=== PATIENT | female | born 1980 | race Caucasian/White ===

== ENCOUNTER 2019-04-08 09:43 | Emergency (ER) | payer OTHER, SELFPAY ==
[2019-04-08 10:20] VITALS: BP 124/66; PULSE 100; RESP 14; TEMP 36.8; O2SAT 100
[2019-04-08] MEDS: TET,DIPH,PERTUSS(ACELL),VAC/PF 0.5 ML SYRINGE IM (10:39)
--- NOTE | 2019-04-08 10:47 | PC.NURSE ---
pt states, washing glass, broke, obtained laceration 4-5th web lac, occured 2 days ago. no bleeding at this time, full rom, distal cms intact.
--- NOTE | 2019-04-08 14:46 | ED_ITS ---
HPI - Wound/Laceration General Chief Complaint: Wound/Laceration Stated Complaint: Deep cut on rt hand Time Seen by Provider: 04/08/19 09:45 Source: patient Mode of arrival: Ambulatory Limitations: no limitations History of Present Illness HPI narrative: 39-year-old female nonsmoker with noncontributory medical history complains of the chief complaint a poorly healing laceration in the webspace between 4th and 5th fingers on her right hand that she suffered a few days ago. She cleaned it well and used hydrogen peroxide but states she was not seen by . She has had Band-Aids and other various dressings on it and states that it is now foul-smelling drainage. She denies any pain or redness in her hand, she has no systemic findings such as fever, chills nor nausea or vomiting. She is able to make a fist without difficulty. Onset (ago): day(s) Extremity Location: Right: hand Patient tetanus UTD: No Context: accidental Treatments prior to arrival: bandage Related Data Previous Rx's Medication Instructions Recorded doxycycline hyclate 100 mg PO BID #20 tab 04/08/19 Allergies Allergy/AdvReac Type Severity Reaction Status Date / Time Penicillins Allergy Verified 04/08/19 10:37 Review of Systems Constitutional Constitutional: Denies chills, Denies fatigue, Denies fever(s), Denies frequent falls, Denies lethargy and Denies weakness Eyes Eyes: Denies change in vision, Denies eye discharge, Denies irritation and Denies loss of vision ENT Ears, Nose, Mouth, and Throat: Denies change in voice, Denies dizziness, Denies neck pain, Denies sore throat and Denies throat swelling Cardiovascular Cardiovascular: Denies chest pain, Denies irregular heart rhythm, Denies lightheadedness, Denies palpitations, Denies dyspnea, Denies dyspnea on exertion and Denies orthopnea Respiratory Respiratory: Denies cough, Denies dyspnea, Denies dyspnea on exertion and Denies wheezing Gastrointestinal Gastrointestinal: Denies abdominal pain, Denies change in bowel habits, Denies diarrhea, Denies nausea and Denies vomiting Genitourinary Genitourinary: Denies hematuria, Denies flank pain, Denies urinary incontinence and Denies urinary urgency Musculoskeletal Musculoskeletal: Denies back pain, Denies muscle weakness, Denies neck pain, Denies numbness and Denies tingling Integumentary/Breasts Skin/Breast: Denies pruritus, Denies erythema, Denies rash, Reports skin pain and Reports wounds Neurologic Neurologic: Denies behavioral changes, Denies confusion, Denies dizziness, Oumar es frequent falls, Denies loss of vision, Denies numbness, Denies tingling and Denies weakness Psychiatric Psychiatric: Denies anxiety, Denies behavioral changes, Denies confusion, Denies depression, Denies homicidal ideation and Denies suicidal ideation Endocrine Endocrine: Denies fatigue, Denies flushing and Denies palpitations Hematologic/Lymphatic Hematologic/Lymphatic: Denies easy bruising Allergic/Immunologic Allergic/Immunologic: Denies urticaria, Denies throat swelling and Denies wheezing Exam Narrative Exam Narrative: GEN: AOx3 and in mild distress EYES: Pupils are equal, round, and reactive to light and accommodation. Extraoccular muscles are intact bilaterally. There is no subconjunctival hemorrhage or exudate. CHEST: Lungs are clear to auscultation bilaterally and free of wheezes, rales, or rhonchi. Heart rate is regular rhythm, there are no murmurs, clicks, rubs, or gallops. There is no chest wall tenderness. ABD: Abdomen is soft and nontender. There is no guarding or rebound. Bowel sounds are normal in all 4 quadrants. There is no mass or organomegaly. EXT: Full painless ROM of all extremities with no loss of sensation or strength. SKIN: 1 cm poorly healing wound in the webspace between 4th and 5th fingers, minimal clear drainage, minimal surrounding erythema. No other swelling or erythema to suggest widespread infection. No active bleeding, wound culture obtained and sent to lab Initial Vital Signs Initial Vital Signs: Vital Signs Temperature 98.3 F 04/08/19 10:20 Pulse Rate 100 H 04/08/19 10:20 Respiratory Rate 14 04/08/19 10:20 Blood Pressure 124/66 04/08/19 10:20 Pulse Oximetry 100 04/08/19 10:20 Course Course Course Narrative: Discussed with patient my recommendation to use wound culture, dressing change and close follow-up as opposed to closing this likely infected wound. She understands the plan and agrees with it. [place]. She understands return precautions and has had questions answered to her apparent satisfaction Orders Ordered: ED Orders 04/08/19 10:30 Wound Culture and Gram Stain Stat Discontinued Medications Diphtheria/Tetanus/Acell Pertussis (Adacel) 0.5 ml IM .ONCE ONE Stop: 04/08/19 10:37 Last Admin: 04/08/19 10:39 Dose: 0.5 ml Documented by: ISABEL Vital Signs Vital signs: Vital Signs - 8 hr 04/08/19 10:20 Temperature 98.3 F Pulse Rate 100 H Respiratory Rate 14 Blood Pressure 124/66 Pulse Oximetry 100 Discharge Plan Departure Patient Disposition: Home Clinical Impression: Laceration Discharge Date/Time: 04/08/19 10:49 Instructions: DI for Wound Infection Activity Restrictions/Additional Instructions: *You have been diagnosed with [ wound R hand ] *What to do: *Take medications as directed *Follow up with your primary care provider in 2-3 days, call for an appointment. Let them know you were seen in the Emergency Department and that we ask that you be seen in follow up *Return to ER if you should have any new, worsening or concerning symptoms, such as [increasing pain, redness or drainage] Prescriptions: New doxycycline hyclate 100 mg tablet 100 mg PO BID Qty: 20 RF: 0
== END 2019-04-08 10:49 | disposition home or self-care (01) ==
PROVIDERS: Emergency Provider Emergency Medicine
DX: S61.411A Laceration without foreign body of right hand, initial encounter (principal); Z23 Encounter for immunization
CPT/HCPCS: 87070; 87205; 90471; 99283; 90715